=== PATIENT | female | born 1995 | race Caucasian/White ===

== ENCOUNTER 2017-08-04 12:33 | Emergency (ER) | payer OTHER ==
[2017-08-04 14:40] LABS: ABS Basophils 0 10^3/ul (0-0.2); ABS Eosinophils 0.1 10^3/ul (0-0.6); ABS Lymphocytes 1.7 10^3/ul (1.0-4.8); ABS Monocytes 0.5 10^3/ul (0-0.8); ABS Neutrophils 3.4 10^3/ul (1.5-7.7); ABS Nucleated RBC 0 10^3/ul; Eosinophil % 1.8 % (0-6); Hematocrit 38 % (35-47); Hemoglobin 12.8 g/dl (12.0-16.0); Mean Corpuscular HGB Conc 34 g/dl (31-36); Mean Corpuscular Hemoglobin 30 pg (27-31); Mean Corpuscular Volume 87 fL (80-97); Mean Platelet Volume 8.3 um3 (7.4-10.4); Nucleated Red Blood Cells % 0; Platelet Count 213 10^3/ul (150-450); Red Blood Count 4.34 10^6/ul (4.0-5.4); Red Cell Distribution Width 13 % (10.5-15); White Blood Count 5.7 10^3/ul (3.5-10.8)
[2017-08-04 14:56] LABS: EGFR Non-African American 109.2 (>60)
--- NOTE | 2017-08-04 15:20 | ED ---
Throat Pain/Nasal Congestion - HPI Summary HPI Summary: Pt here w/ bump behind Lt ear since Apr 2017. She thinks it may be larger now over the past 1 week than at onset. "Aches". Was seen at last week when she realized this and they told her it could be lymphoma - she is here for evaluation of lymphoma. Associated symptoms include intermittent nausea which she does not link with any specific pattern. She's not had any vomiting and continues to eat without diarrhea or abdominal pain. She also denies fever although she was told convenient care she had a "low-grade fever" as it was 99 Fahrenheit. Furthermore she reports she's had mild fatigue over the past week where she needs to take a nap in the middle of the day. Otherwise denies headache, visual change, rhinorrhea, sore throat, otalgia, neck swelling /pain / stiffness , chest pain, cough, shortness of breath, sneezing, abdominal pain, skin changes, swelling of extremities or and other lymph node area such as her armpits/groin/elbows/knees, numbness, tingling, weakness. Admits to h/o mono - reports this may feel similar as before, "no sx last time - just sort of found out" Upon, PE, I inquired about her Lt pinna piercing as it appeared erythematous. She admits this started bothering her about a week ago. The earring came out and she put it back in which was painful and bled a little. The ear is red and tender without drainage - has mild swelling. - History of Current Complaint Chief Complaint: EDGeneral Time Seen by Provider: 08/04/17 12:54 Hx Obtained From: Patient - Allergies/Home Medications Allergies/Adverse Reactions: Allergies Allergy/AdvReac Type Severity Reaction Status Date / Time tree nut Allergy Anaphylatic Verified 08/04/17 12:39 Shock Home Medications: Home Medications EPINEPHrine [Epipen 2-Dilip] 0.3 mg IM ONCE 08/04/17 [History Confirmed 08/04/17] PMH/Surg Hx/FS Hx/Imm Hx Previously Healthy: Yes Endocrine/Hematology History: Denies: Hx Anticoagulant Therapy, Hx Blood Disorders, Hx Blood Transfusions, Hx Bone Marrow Disease, Hx Unexplained Bleeding, Hx Coagulopothy, Autoimmune Disease, Other Endocrine/Hematological Disorders - Immunization History Immunizations Up to Date: Yes Infectious Disease History: No Infectious Disease History: Denies: Traveled Outside the [place] in Last 30 Days - Family History Known Family History: Positive: Hypertension - Social History Occupation: Student Lives: Dormitory/Roommates Alcohol Use: None Hx Substance Use: No Substance Use Type: Reports: None Substance Use Comment - Amount & Last Used: unk Hx Tobacco Use: Yes Smoking Status (MU): Current Some Day Smoker Review of Systems Positive: Fatigue. Negative: Fever, Chills Eyes: Negative Negative: Photophobia, Blurred Vision, Diplopia, Drainage, Erythema ENT: Other - ear piercing discomfort as in HPI Negative: Epistaxis, Dental Pain, Sore Throat, Ear Ache, Nasal Discharge Cardiovascular: Negative Negative: Chest Pain Respiratory: Negative Negative: Shortness Of Breath Positive: Nausea - intermittent. Negative: Abdominal Pain, Vomiting, Diarrhea Positive: no symptoms reported Musculoskeletal: Negative Negative: Decreased ROM, Edema Skin: Negative Neurological: Negative Positive: Anxious All Other Systems Reviewed And Are Negative: Yes Physical Exam Triage Information Reviewed: Yes Vital Signs On Initial Exam: Initial Vitals Temp Pulse Resp BP Pulse Ox 97.8 F 92 16 132/95 98 08/04/17 12:34 08/04/17 12:34 08/04/17 12:34 08/04/17 12:34 08/04/17 12:34 Vital Signs Reviewed: Yes Appearance: Positive: Well-Appearing, No Pain Distress, Well-Nourished - no palpable LN's in axillary regions, femoral regions, epitrochlear regions and popliteal regions Skin: Positive: Warm, Skin Color Reflects Adequate Perfusion, Dry, Other - 2mm area of erythema along the postauricalar region on Lt side of scalp where the post of her earring makes contact. The LN of concern is just inferior here - < 1 cm in size, well defined borders, smooth, slightly mobile, mildly TTP w/o central pore or fluctuance. No other skin abnormalities or LN swelling in this area. Head/Face: Positive: Normal Head/Face Inspection Eyes: Positive: Normal, EOMI, ELDON - no photophobia, Conjunctiva Clear. Negative: Conjunctiva Inflammed, Discharge ENT: Positive: Normal ENT inspection, Hearing grossly normal, Pharynx normal, TMs normal, Uvula midline. Negative: Pharyngeal erythema, Nasal congestion, Nasal drainage, TM bulging, TM dull, TM red, Tonsillar swelling, Tonsillar exudate, Trismus, Muffled voice, Hoarse voice, Dental tenderness, Sinus tenderness Dental: Negative: Dental Fracture @, Abscess @ Neck: Positive: Supple, Nontender, Enlarged Nodes @ - as above - otherwise, no palapble LN's elsewhere including clavicular, thoracic and other areas noted; no gross thyromegaly. Negative: Nuchal Rigidity, Tenderness @ Respiratory/Lung Sounds: Positive: Clear to Auscultation, Breath Sounds Present Cardiovascular: Positive: Normal, RRR, S1, S2 Abdomen Description: Positive: No Organomegaly, Soft, Other: - mild TTP over LUQ - NO REBOUNDING Bowel Sounds: Positive: Present Musculoskeletal: Positive: Normal, Strength/ROM Intact Neurological: Positive: Normal, Sensory/Motor Intact, Alert, Oriented to Person Place, Time, CN Intact II-III, Reflexes Intact Psychiatric: Positive: Anxious Diagnostics - Vital Signs Vital Signs Temp Pulse Resp BP Pulse Ox 08/04/17 12:34 97.8 F 92 16 132/95 98 - Laboratory Lab Results: Lab Results 08/04/17 08/04/17 08/04/17 Range/Units 14:31 14:31 14:31 WBC 5.7 (3.5-10.8) 10^3/ul RBC 4.34 (4.0-5.4) 10^6/ul Hgb 12.8 (12.0-16.0) g/dl Hct 38 (35-47) % MCV 87 (80-97) fL MCH 30 (27-31) pg MCHC 34 (31-36) g/dl RDW 13 (10.5-15) % Plt Count 213 (150-450) 10^3/ul MPV 8.3 (7.4-10.4) um3 Neut % (Auto) 59.3 (38-83) % Lymph % (Auto) 30.0 (25-47) % [place] % (Auto) 8.4 H (0-7) % Eos % (Auto) 1.8 (0-6) % Baso % (Auto) 0.5 (0-2) % Absolute Neuts (auto) 3.4 (1.5-7.7) 10^3/ul Absolute Lymphs (auto) 1.7 (1.0-4.8) 10^3/ul Absolute Monos (auto) 0.5 (0-0.8) 10^3/ul Absolute Eos (auto) 0.1 (0-0.6) 10^3/ul Absolute Basos (auto) 0 (0-0.2) 10^3/ul Absolute Nucleated RBC 0 10^3/ul Nucleated RBC % 0 Sodium 138 L (139-145) mmol/L Potassium 3.6 (3.5-5.0) mmol/L Chloride 106 (101-111) mmol/L Carbon Dioxide 22 (22-32) mmol/L Anion Gap 10 (2-11) mmol/L BUN 10 (6-24) mg/dL Creatinine 0.68 (0.51-0.95) mg/dL Est GFR ( Amer) 140.5 (>60) Est GFR (Non-Af Amer) 109.2 (>60) BUN/Creatinine Ratio 14.7 (8-20) Glucose 87 (70-100) mg/dL Lactic Acid 1.0 (0.5-2.0) mmol/L Calcium 9.5 (8.6-10.3) mg/dL Total Bilirubin 0.30 (0.2-1.0) mg/dL AST 14 (13-39) U/L ALT 14 (7-52) U/L Alkaline Phosphatase 43 (34-104) U/L C-Reactive Protein 4.64 (< 5.00) mg/L Total Protein 6.9 (6.4-8.9) g/dL Albumin 4.2 (3.2-5.2) g/dL Globulin 2.7 (2-4) g/dL Albumin/Globulin Ratio 1.6 (1-3) Monoscreen Negative (Negative) Result Diagrams: 08/04/17 14:31 08/04/17 14:31 Lab Statement: Any lab studies that have been ordered have been reviewed, and results considered in the medical decision making process. EENT Course/Dx - Course Course Of Treatment: Pt presents w/ concern for lymphoma as a medical person at told her she could have this based on her Lt postauricular LN. Her physical evaluation is more concerning for left ear infection secondary to a piercing here. Advised careful care of this piercing along with NSAIDs and antihistamines to see if inflammation will reduce along with postauricular lymph node inflammation however this may take weeks to resolve - appears to be mild so anbx were not initiated however if worsens, they may need to be taken. Patient agrees with the care plan until she spoke with her mother on the phone who is adamant that patient needs a comprehensive lymphoma workup in the ED today. After much conversation explaining patient does not clinically appear to have lymphoma based on presentation as well as labs, vitals and past medical history however she can have a more comprehensive workup outpatient if danger signs and symptoms present. Mom is adamant that some sort of imaging should be done today. I agreed to ultrasound the lymph node however both mom and patient wanted to make sure patient was discharged by 1700. Explained that this may not be a possibility as it is already after 1600. Patient opted to leave without ultrasound and follow-up outpatient. Patient also agreed with the care plan as discussed above and to follow up with [facility] for re-eval of sx. - Diagnoses Provider Diagnoses: Pinna disorder Discharge - Sign-Out/Discharge Documenting (check all that apply): Discharge/Admit/Transfer - Discharge Plan Condition: Stable Disposition: HOME Patient Education Materials: Lymphadenopathy (ED) Referrals: [facility] - Campbell MORGAN [Primary Care Provider] - Additional Instructions: The cause of your enlarged lymph node may be from the inflammation from your ear piercing. To eliminate this process as a possibility, start with care here over the weekend. Place thin, sensitive skin hoop in piercing of Left ear and keep clean by washing daily, turning and applying antibiotic ointment. You may also try ice, ibuprofen with food and an antihistamine (zyrtec). If this does not clear the area, follow-up with PCP for further testing through [facility] on Monday. Your labs and clinical exam here today have been normal otherwise. If lymph node continues to enlarge without improvement from treatment , you may need a biopsy to identify the specific contents here. *If in the meantime you develop dizziness, throat swelling, neck stiffness, difficulty swallowing or breathing, vomiting, abdominal pain, diarrhea, fever > 102F despite acetaminophen or ibuprofen, return to ED - Billing Disposition and Condition Condition: STABLE Disposition: HOME
[2017-08-04 16:09] VITALS: BP 150/97
== END 2017-08-04 16:07 | disposition home or self-care (01) ==
LOC: ED 12:33
DX: R59.9 Enlarged lymph nodes, unspecified (principal); F17.200 Nicotine dependence, unspecified, uncomplicated
CPT/HCPCS: 36415; 80053; 83605; 84702; 85025; 86140; 86308; 99282